=== PATIENT | female | born 1960 | race Asian ===

== ENCOUNTER 2019-04-30 22:20 | Emergency (ER) | payer OTHER, SELFPAY ==
[2019-04-30 22:25] VITALS: BP 177/108; PULSE 132; RESP 32; TEMP 39; O2SAT 97; BMI 25.7
--- NOTE | 2019-04-30 22:44 | DI.RAD.S_ITS ---
PROCEDURE: XR CHEST 1V INDICATIONS: suspected sepsis TECHNIQUE: One view of the chest was acquired. COMPARISON: None. FINDINGS: Surgical changes and devices: None. Lungs and pleura: Lungs are clear. No pleural effusions or pneumothorax. Mediastinum: Mediastinal contours appear normal. Heart size is normal. Bones and chest wall: No suspicious bony lesions. Overlying soft tissues appear unremarkable. IMPRESSION: No acute cardiopulmonary process is evident. Dictated by: Lisandro Kelley M.D. on 05/01/2019 at 9:33 Approved by: Lisandro Kelley M.D. on 05/01/2019 at 9:34
[2019-04-30 23:00] VITALS: BP 145/81; PULSE 95; RESP 19; O2SAT 97
[2019-04-30 23:03] LABS: Add Manual Diff / Slide Review NO; Basophils Absolute Auto 0 /uL (0-100); Basophils Percent Auto 0.5 % (0-2); Eosinophils Absolute Auto 100 /uL (0-450); Eosinophils Percent Auto 1.9 % (2-4); Hematocrit 40.1 % (36-46); Hemoglobin 13.6 g/dL (12.0-16.0); Lymphocytes Absolute Auto 600 /uL (1100-4500); Lymphocytes Percent Auto 8.5 % (25-40); Mean Corpuscular Hemoglobin 32.4 PG (26-34); Mean Corpuscular Volume 95.4 fL (80-100); Monocytes Absolute Auto 500 /uL (0-900); Neutrophils Absolute Auto 5400 /uL (1500-7000); Neutrophils Percent Auto 82.1 % (50-75); Platelet Count 208 X10^3/uL (150-400); Red Blood Cell Count 4.21 X10^6/uL (4.0-5.2); Red Cell Distribution Width 12.4 % (11.6-14.8); White Blood Cell Count 6.5 X10^3/uL (4.5-11.0)
[2019-04-30 23:09] LABS: Prothrombin Time 11.7 SECONDS (10.1-12.7)
[2019-04-30 23:11] LABS: PTT Partial Thromboplastin Tim 28 SECONDS (26.4-36.2)
[2019-04-30 23:14] LABS: Alanine Aminotransferase 22 IU/L (<35); Albumin 4.3 g/dL (3.5-5.0); Albumin Globulin Ratio 1.1 (1.0-2.8); Alkaline Phosphatase 96 U/L (38-126); Aspartate Aminotransferase 29 IU/L (14-36); BUN Creatinine Ratio 17.6 (6-22); Bilirubin Total 0.6 mg/dL (0.2-1.3); Blood Urea Nitrogen 18 mg/dL (7-17); Calcium 9.5 mg/dL (8.4-10.2); Carbon Dioxide 25 mmol/L (22-32); Chloride 104 mmol/L (98-107); Estimated Glomerular Filt Rate 56.1 mL/min (>60); Globulin 3.9 g/dL (1.7-4.1); Glucose 130 mg/dL (70-100); HEMOLYSIS < 15 (0-50); Lactate (Lactic Acid) 0.8 mmol/L (0.7-2.1); Lipase 174 U/L (23-300); Sodium 136 mmol/L (137-145); Total Protein 8.2 g/dL (6.3-8.2)
[2019-04-30] MEDS: SODIUM CHLORIDE 0.9% 1,000 ML 1000 ML IV (23:17)
[2019-04-30 23:36] LABS: Procalcitonin 0.08 ng/mL (<0.5)
[2019-05-01 00:02] LABS: Adenovirus Not Detected (Not Detect); Bordetella pertussis Not Detected (Not Detect); Chlamydophila pneumoniae Not Detected (Not Detect); Coronavirus 229E Not Detected (Not Detect); Coronavirus HKU1 Not Detected (Not Detect); Coronavirus NL 63 Not Detected (Not Detect); Coronavirus OC43 Not Detected (Not Detect); Human Metapneumovirus Detected (Not Detect); Human Rhinovirus/Enterovirus Not Detected (Not Detect); Influenza A Not Detected (Not Detect); Influenza B Not Detected (Not Detect); Mycoplasma pneumoniae Not Detected (Not Detect); Parainfluenza Virus 1 Not Detected (Not Detect); Parainfluenza Virus 2 Not Detected (Not Detect); Parainfluenza Virus 3 Not Detected (Not Detect); Parainfluenza Virus 4 Not Detected (Not Detect); Respiratory Syncytial Virus Not Detected (Not Detect)
--- NOTE | 2019-05-01 00:27 | ED_ITS ---
HPI - Sepsis General Chief Complaint: Shortness of Breath/Dyspnea Mode of arrival: Family Vehicle Source: patient Limitations: no limitations Evaluation Sepsis Screen: Possible Sepsis Risk Sepsis Infection Criteria Present: Suspected New Infection Narrative: HPI: The patient is a 58-year-old female who initially on admission had a blood pressure 177/108 heart rate of 132 respiratory rate 32 and a saturation of 97. Her temperature was a 102.2?. Earlier in the week on Friday she had a fever to 101.3. She has a history of bronchitis with persistent coughing productive of a sputum that is slightly yellow. She has over the past week developed some shortness of breath without chest pain. She denies any palpitations or racing of her heart. She has been mildly dizzy. She has had a runny nose with a congested cough. She has had the fever with sweats but no chills. She has had a mild headache but no numbness tingling paresthesias at a seizures or paresis. She has had sinus congestion with sore throat and a cough. She has had no rash or bruising. She denies any significant abdominal pain denying melena hematochezia diarrhea nausea and vomiting. She has had no urinary symptoms. The patient does not smoke cigarettes or drink alcohol. She denies a history of diabetes mellitus congestive heart failure myocardial infarction and asthma. However she does have a history of hypertension. Review of Systems Review of Systems Narrative: Her review of systems were all negative except for those mentioned in the history of present illness. Patient History Social History Smoking Status: Never smoker Smoking Status: Never smoker Substance Use Type: does not use Exam Narrative Exam Narrative: PHYSICAL EXAM: CONSTITUTIONAL: Awake, Alert, Oriented, Coherent, Cooperative in NAD. Does not appear toxic or ill. She is wearing a mask. HEAD: AT/NC EENT: PERRL, FROM of eyes, no discharge, . No epistaxis but she does have a congested runny nose with clear rhinorrhea. Oral mucosa is moist and pink, posterior pharynx is without erythema or exudate. NECK: Supple, no obvious JVD, Trachea is midline without stridor, no palpable LN or masses. She has full range of motion of her neck without any evidence of nuchal rigidity. SPINE: No gross deformity, no palpable tenderness of the cervical, thoracic, lumbar or sacral spine. No CVA tenderness. THORAX: No deformity, retractions, chest wall tenderness,. LUNGS: The patient has a congested cough with symmetrical breath sounds and inspiratory crackles in both bases of her or her lungs. There was no respirator y distress. HEART: Normal heart tones, regular rhythm but tachycardic.. ABDOMEN: Soft, non-tender, normal bowel sounds without guarding, rebound, rigidity or palpable mass. EXTREMITIES: No edema, cyanosis, deformity or tenderness. SKIN: No rash, bruising, petechiae or purpura. NEURO: Awake, alert, oriented, conversive, cranial nerves II-XII are symmetrical and normal, moves all 4 extremities and is ambulatory Initial Vital Signs Initial Vital Signs: Vital Signs Temperature 102.2 F H 04/30/19 22:25 Pulse Rate 132 H 04/30/19 22:25 Respiratory Rate 32 H 04/30/19 22:25 Blood Pressure 177/108 H 04/30/19 22:25 Pulse Oximetry 97 04/30/19 22:25 Course Course Course Narrative: 0028 the patient's chest x-ray by my review reveals a questionable patchy area of infiltrate in the right lung. However, and the patient's chest is rotated. The patient consequently was started on Levaquin. The respiratory panel was positive for metapneumovirus VR virus otherwise negative. Because of the patient's age arm fever she was checked for freire virus.. The patient complains of a significant headache . 0145 the patient's heart rate went back up to 106. It was down in the mid 90s. Will administer a 2nd L of fluid re-evaluate the patient. I was attempting to try and discharge the patient since her blood pressure has improved to 1 58 respiratory rate has slowed to 18 and her oxygen saturation ranges from between 95-98. 0300 the patient states that she feels much improved her heart rate is 88 she has been resting comfortably would like to go home and try the antibiotics. Orders Ordered: ED Orders 04/30/19 22:35 Respiratory Panel (Film Array) Stat 04/30/19 22:40 EKG-12 Lead Stat 04/30/19 22:44 XR chest 1V Stat RT Consult Eval and Treat Now 04/30/19 22:48 Complete Blood Count AUTO DIFF Stat Comprehensive Metabolic Panel Stat Lactate (Lactic Acid) Stat Lipase Stat Partial Thromboplastin Time Stat Procalcitonin Stat Prothrombin Time INR Stat 04/30/19 23:03 Blood Culture Stat 05/01/19 00:50 Urine Microscopic Stat Discontinued Medications Albuterol (Ventolin Hfa) 2 puff INH NOW ONE Stop: 05/01/19 00:25 Last Admin: 05/01/19 00:37 Dose: 2 puff Documented by: ALESHA Diphenhydramine HCl (Benadryl) 25 mg IV NOW ONE Stop: 05/01/19 00:20 Last Admin: 05/01/19 00:45 Dose: 25 mg Documented by: ALESHA Sodium Chloride (Normal Saline 0.9%) 1,000 mls @ 1,000 mls/hr IV BOLUS ONE Stop: 04/30/19 23:43 Last Infusion: 05/01/19 02:08 Dose: 0 mls/hr Documented by: Infusion: 04/30/19 23:45 Dose: 0 mls/hr Documented by: Admin: 04/30/19 23:17 Dose: 1,000 mls/hr Documented by: ALESHA Levofloxacin (Levaquin) 750 mg in 150 mls @ 100 mls/hr IV NOW ONE Stop: 05/01/19 01:55 Last Infusion: 05/01/19 03:03 Dose: 0 mls/hr Documented by: Admin: 05/01/19 00:45 Dose: 100 mls/hr Documented by: ALESHA Sodium Chloride (Normal Saline 0.9%) 1,000 mls @ 1,000 mls/hr IV BOLUS ONE Stop: 05/01/19 02:43 Last Infusion: 05/01/19 03:30 Dose: 0 mls/hr Documented by: Admin: 05/01/19 02:08 Dose: 1,000 mls/hr Documented by: LASHELL Ketorolac Tromethamine (Toradol) 30 mg IV NOW ONE Stop: 05/01/19 00:20 Last Admin: 05/01/19 00:44 Dose: 30 mg Documented by: ALESHA Methylprednisolone (Solu-Medrol 125 Mg Vial) 125 mg IV NOW ONE Stop: 05/01/19 00:21 Last Admin: 05/01/19 00:44 Dose: 125 mg Documented by: ALESHA Metoclopramide HCl (Reglan) 10 mg IV NOW ONE Stop: 05/01/19 00:20 Last Admin: 05/01/19 00:44 Dose: 10 mg Documented by: ALESHA Vital Signs Vital signs: Vital Signs - 8 hr 04/30/19 22:25 04/30/19 23:00 05/01/19 00:44 Temperature 102.2 F H Pulse Rate 132 H 95 H 100 H Respiratory Rate 32 H 19 20 Blood Pressure 177/108 H Blood Pressure [Left Arm] 145/81 H Pulse Oximetry 97 97 05/01/19 01:30 05/01/19 02:09 05/01/19 02:21 Temperature 99.9 F H 99.9 F H Pulse Rate 105 H 96 H Respiratory Rate 18 25 H Blood Pressure Blood Pressure [Left Arm] 119/58 L 109/55 L Pulse Oximetry 95 95 05/01/19 04:00 Temperature Pulse Rate 85 Respiratory Rate 98 H Blood Pressure 106/59 L Blood Pressure [Left Arm] Pulse Oximetry 98 MDM - Sepsis Medical Records Attestation: I reviewed the patient's medical records. Lab Data Attestation: I reviewed the patient's lab results. Result diagrams: 04/30/19 22:48 04/30/19 22:48 Labs: Lab Results 04/30/19 04/30/19 04/30/19 Range/Units 22:35 22:48 22:48 WBC 6.5 (4.5-11.0) X10^3/uL RBC 4.21 (4.0-5.2) X10^6/uL Hgb 13.6 (12.0-16.0) g/dL Hct 40.1 (36-46) % MCV 95.4 (80-100) fL MCH 32.4 (26-34) PG MCHC 34.0 (30-36) % RDW 12.4 (11.6-14.8) % Plt Count 208 (150-400) X10^3/uL Neut % (Auto) 82.1 H (50-75) % Lymph % (Auto) 8.5 L (25-40) % [place] % (Auto) 7.0 (3-14) % Eos % (Auto) 1.9 L (2-4) % Baso % (Auto) 0.5 (0-2) % Neut # (Auto) 5400 (8505-4031) /uL Lymph # (Auto) 600 L (7675-8204) /uL [place] # (Auto) 500 (0-900) /uL Eos # (Auto) 100 (0-450) /uL Baso # (Auto) 0 (0-100) /uL PT 11.7 (10.1-12.7) SECONDS INR 1.0 (0.9-1.3) APTT 28 (26.4-36.2) SECONDS Sodium (137-145) mmol/L Potassium (3.4-5.1) mmol/L Chloride (98-107) mmol/L Carbon Dioxide (22-32) mmol/L BUN (7-17) mg/dL Creatinine (0.52-1.04) mg/dL Estimated GFR (>60) mL/min BUN/Creatinine Ratio (6-22) Glucose (70-100) mg/dL Lactate (0.7-2.1) mmol/L Calcium (8.4-10.2) mg/dL Total Bilirubin (0.2-1.3) mg/dL AST (14-36) IU/L ALT (<35) IU/L Alkaline Phosphatase (38-126) U/L Total Protein (6.3-8.2) g/dL Albumin (3.5-5.0) g/dL Globulin (1.7-4.1) g/dL Albumin/Globulin Ratio (1.0-2.8) Lipase (23-300) U/L Procalcitonin (<0.5) ng/mL Urine RBC (0-5/HPF) Urine WBC (0-5/HPF) Ur Squamous Epith Cells (0-5/HPF) Urine Bacteria (None) Ur Culture Indicated? Micro UA Comment Chlamy pneumoniae PCR Not detected (Not Detect) Adenovirus (PCR) Not detected (Not Detect) B.parapertussis DNA PCR Not detected (Not Detect) Coronavirus OC43 (PCR) Not detected (Not Detect) Coronavirus HKU1 (PCR) Not detected (Not Detect) Coronavirus 229E (PCR) Not detected (Not Detect) Coronavirus NL63 (PCR) Not detected (Not Detect) Human Metapneumovir PCR Detected H (Not Detect) Influenza Type A (PCR) Not detected (Not Detect) Influenza Type B (PCR) Not detected (Not Detect) M. pneumoniae (PCR) Not detected (Not Detect) Parainfluenza 1 (PCR) Not detected (Not Detect) Parainfluenza 2 (PCR) Not detected (Not Detect) Parainfluenza 3 (PCR) Not detected (Not Detect) Parainfluenza 4 (PCR) Not detected (Not Detect) RSV (PCR) Not detected (Not Detect) Entero/Rhino (PCR) Not detected (Not Detect) 04/30/19 04/30/19 04/30/19 Range/Units 22:48 22:48 22:48 WBC (4.5-11.0) X10^3/uL RBC (4.0-5.2) X10^6/uL Hgb (12.0-16.0) g/dL Hct (36-46) % MCV (80-100) fL MCH (26-34) PG MCHC (30-36) % RDW (11.6-14.8) % Plt Count (150-400) X10^3/uL Neut % (Auto) (50-75) % Lymph % (Auto) (25-40) % [place] % (Auto) (3-14) % Eos % (Auto) (2-4) % Baso % (Auto) (0-2) % Neut # (Auto) (5574-3924) /uL Lymph # (Auto) (9621-5068) /uL [place] # (Auto) (0-900) /uL Eos # (Auto) (0-450) /uL Baso # (Auto) (0-100) /uL PT (10.1-12.7) SECONDS INR (0.9-1.3) APTT (26.4-36.2) SECONDS Sodium 136 L (137-145) mmol/L Potassium 4.0 (3.4-5.1) mmol/L Chloride 104 (98-107) mmol/L Carbon Dioxide 25 (22-32) mmol/L BUN 18 H (7-17) mg/dL Creatinine 1.02 (0.52-1.04) mg/dL Estimated GFR 56.1 L (>60) mL/min BUN/Creatinine Ratio 17.6 (6-22) Glucose 130 H (70-100) mg/dL Lactate 0.8 (0.7-2.1) mmol/L Calcium 9.5 (8.4-10.2) mg/dL Total Bilirubin 0.6 (0.2-1.3) mg/dL AST 29 (14-36) IU/L ALT 22 (<35) IU/L Alkaline Phosphatase 96 (38-126) U/L Total Protein 8.2 (6.3-8.2) g/dL Albumin 4.3 (3.5-5.0) g/dL Globulin 3.9 (1.7-4.1) g/dL Albumin/Globulin Ratio 1.1 (1.0-2.8) Lipase 174 (23-300) U/L Procalcitonin 0.08 (<0.5) ng/mL Urine RBC (0-5/HPF) Urine WBC (0-5/HPF) Ur Squamous Epith Cells (0-5/HPF) Urine Bacteria (None) Ur Culture Indicated? Micro UA Comment Chlamy pneumoniae PCR (Not Detect) Adenovirus (PCR) (Not Detect) B.parapertussis DNA PCR (Not Detect) Coronavirus OC43 (PCR) (Not Detect) Coronavirus HKU1 (PCR) (Not Detect) Coronavirus 229E (PCR) (Not Detect) Coronavirus NL63 (PCR) (Not Detect) Human Metapneumovir PCR (Not Detect) Influenza Type A (PCR) (Not Detect) Influenza Type B (PCR) (Not Detect) M. pneumoniae (PCR) (Not Detect) Parainfluenza 1 (PCR) (Not Detect) Parainfluenza 2 (PCR) (Not Detect) Parainfluenza 3 (PCR) (Not Detect) Parainfluenza 4 (PCR) (Not Detect) RSV (PCR) (Not Detect) Entero/Rhino (PCR) (Not Detect) 05/01/19 Range/Units 00:50 WBC (4.5-11.0) X10^3/uL RBC (4.0-5.2) X10^6/uL Hgb (12.0-16.0) g/dL Hct (36-46) % MCV (80-100) fL MCH (26-34) PG MCHC (30-36) % RDW (11.6-14.8) % Plt Count (150-400) X10^3/uL Neut % (Auto) (50-75) % Lymph % (Auto) (25-40) % [place] % (Auto) (3-14) % Eos % (Auto) (2-4) % Baso % (Auto) (0-2) % Neut # (Auto) (3397-6047) /uL Lymph # (Auto) (4598-1359) /uL [place] # (Auto) (0-900) /uL Eos # (Auto) (0-450) /uL Baso # (Auto) (0-100) /uL PT (10.1-12.7) SECONDS INR (0.9-1.3) APTT (26.4-36.2) SECONDS Sodium (137-145) mmol/L Potassium (3.4-5.1) mmol/L Chloride (98-107) mmol/L Carbon Dioxide (22-32) mmol/L BUN (7-17) mg/dL Creatinine (0.52-1.04) mg/dL Estimated GFR (>60) mL/min BUN/Creatinine Ratio (6-22) Glucose (70-100) mg/dL Lactate (0.7-2.1) mmol/L Calcium (8.4-10.2) mg/dL Total Bilirubin (0.2-1.3) mg/dL AST (14-36) IU/L ALT (<35) IU/L Alkaline Phosphatase (38-126) U/L Total Protein (6.3-8.2) g/dL Albumin (3.5-5.0) g/dL Globulin (1.7-4.1) g/dL Albumin/Globulin Ratio (1.0-2.8) Lipase (23-300) U/L Procalcitonin (<0.5) ng/mL Urine RBC None seen (0-5/HPF) Urine WBC None seen (0-5/HPF) Ur Squamous Epith Cells 0-1 /hpf (0-5/HPF) Urine Bacteria None seen (None) Ur Culture Indicated? Cult not indicated Micro UA Comment Microscopic normal Chlamy pneumoniae PCR (Not Detect) Adenovirus (PCR) (Not Detect) B.parapertussis DNA PCR (Not Detect) Coronavirus OC43 (PCR) (Not Detect) Coronavirus HKU1 (PCR) (Not Detect) Coronavirus 229E (PCR) (Not Detect) Coronavirus NL63 (PCR) (Not Detect) Human Metapneumovir PCR (Not Detect) Influenza Type A (PCR) (Not Detect) Influenza Type B (PCR) (Not Detect) M. pneumoniae (PCR) (Not Detect) Parainfluenza 1 (PCR) (Not Detect) Parainfluenza 2 (PCR) (Not Detect) Parainfluenza 3 (PCR) (Not Detect) Parainfluenza 4 (PCR) (Not Detect) RSV (PCR) (Not Detect) Entero/Rhino (PCR) (Not Detect) Urine Dip Bedside Urine Glucose Negative Bedside Urine Bilirubin - Negative Bedside Urine Ketone +/- 5 Urine Specific [place] 1.020 Bedside Urine Occult Blood +/- Bedside Urine pH 6.5 Bedside Urine Protein - Negative Bedside Urine Urobilinogen - Negative Bedside Urine Nitrite - Negative Bedside Urine Leukocytes + 70 Esterase ECG Data Attestation: I personally reviewed and interpreted this ECG as follows: Interpretation: The patient's EKG obtained on April 29 at 22:4 12:24 a.m. reveals a sinus tachycardia with a ventricular rate of 111. Her intervals are normal including the QTC. She has normal axis. The patient has nonspecific ST segment changes in leads III and V1. The T-waves in V1 or flattened. There are no other acute diagnostic ST segment changes to suggest an acute injury. Discharge Plan Departure Patient Disposition: Home Clinical Impression: Bronchitis, Pneumonitis Fever Qualifiers: Fever type: unspecified Qualified Code(s): R50.9 - Fever, unspecified Headache Qualifiers: Headache type: unspecified Headache chronicity pattern: unspecified pattern Intractability: not intractable Qualified Code(s): R51 - Headache Discharge Date/Time: 05/01/19 04:00 Instructions: DI for Cough -- Adult, DI for Acute Bronchitis, DI for Viral Upper Respiratory Infection -- Adult, DI for Headache Activity Restrictions/Additional Instructions: 1. Freire virus has been ordered on you and it will take approximately 5 days for it to return. During this time you need to isolate herself at home and not go out in public. The hospital will call you with the results of the freire vi chary. 2. Take the Levaquin 500 mg every day. 3. Take the prednisone 40 mg daily for the next 5 days. 4. Use the albuterol inhaler with a spacer 1-2 puffs every 2-4 hours as needed for cough, shortness of breath, wheezing. 5 use acetaminophen/Tylenol 500 mg every 4 hours or 1000 mg every 6 hours for f ever. 6. Drink 2-3 L of fluid per day to keep herself hydrated. 7. If you develop worsening shortness of breath, racing of your heart, dizziness, passing out, or chest pain you need to proceed to the nearest emergency department for further evaluation. 8. Follow-up with your primary care physician. Prescriptions: New prednisone 20 mg tablet 40 mg PO DAILY Qty: 10 RF: 0 levofloxacin [Levaquin] 500 mg tablet 500 mg PO DAILY Qty: 10 RF: 0 albuterol sulfate 90 mcg/actuation HFA aerosol inhaler 2 puff INHALATION Q4-6H PRN (Reason: shortness of breath or wheezing) Qty: 8.5 RF: 2 ED Sign-out Cosign ED Attending Cosignature Attestation: [facility]. This documentation has been reviewed and I agree with assessment and plan. Supervised by James Ceron MD
[2019-05-01] MEDS: ALBUTEROL HFA 60 PUFF/8 GM INH INH (00:37)
[2019-05-01 00:44] VITALS: PULSE 100; RESP 20
[2019-05-01] MEDS: KETOROLAC 60 MG/2 ML VIAL 30 MG IV (00:44)
[2019-05-01] MEDS: METOCLOPRAMIDE 10 MG/2 ML INJ IV (00:44)
[2019-05-01] MEDS: methylPREDNISolone 125 MG/2 ML VIAL IV (00:44)
[2019-05-01] MEDS: levoFLOXacin 750 MG/150 ML PIGGYBACK 100 MG IV (00:45)
[2019-05-01] MEDS: diphenhydrAMINE 50 MG/ML VIAL 25 MG IV (00:45)
[2019-05-01 01:30] VITALS: BP 119/58; PULSE 105; RESP 18; O2SAT 95
[2019-05-01 02:04] LABS: Bacteria Urine None Seen; RBC Urine None Seen (0-5/HPF); WBC Urine None Seen (0-5/HPF)
[2019-05-01 02:05] LABS: Culture Indicated Urine Cult Not Indicated; Squamous Epithelial Cell Urine 0-1 /HPF (0-5/HPF); Urine Comments Microscopic Normal
[2019-05-01] MEDS: SODIUM CHLORIDE 0.9% 1,000 ML 1000 ML IV (02:08)
[2019-05-01 02:09] VITALS: TEMP 37.7
[2019-05-01 02:21] VITALS: BP 109/55; PULSE 96; RESP 25; TEMP 37.7; O2SAT 95
[2019-05-01 04:00] VITALS: BP 106/59; PULSE 85; RESP 98; O2SAT 98
[2019-05-04 08:39] LABS: COVID19 Sendout Not Detected (Not Detected)
== END 2019-05-01 04:00 | disposition home or self-care (01) ==
PROVIDERS: Emergency Provider Emergency Medicine
DX: J40 Bronchitis, not specified as acute or chronic (principal); J18.9 Pneumonia, unspecified organism; R50.9 Fever, unspecified; R51 Headache; R00.0 Tachycardia, unspecified
CPT/HCPCS: 36415; 71045; 80053; 81003; 81015; 83605; 83690; 84145; 85025; 85610; 85730; 87040; 87633; 87635; 93005; 94640; 96365; 96366; 96375; 99284; J1200; J1885; J1956; J2765; J2930

== ENCOUNTER 2020-10-12 18:00 | Emergency (ER) | payer OTHER, SELFPAY ==
[2020-10-12 18:25] VITALS: BP 166/96; PULSE 86; RESP 14; TEMP 36.2; O2SAT 98; BMI 28.3
--- NOTE | 2020-10-12 18:32 | DI.RAD.S_ITS ---
PROCEDURE: XR HAND LT MIN 3V INDICATIONS: cut left middle/index finger on an electric saw. TECHNIQUE: 3 views of the hand(s) acquired. COMPARISON: None. FINDINGS: Bones: No fractures or dislocations. Carpal bones are normally aligned. No suspicious bony lesions. Generalized decrease in osseous mineralization noted. Soft tissues: Soft tissue laceration noted involving distal 2nd and 3rd digits. No radiopaque foreign body or underlying osseous injury. IMPRESSION: Soft tissue laceration without foreign body or osseous injury Approved by: Pancho Macario M.D. on 10/12/2020 at 18:12
[2020-10-12] MEDS: TET,DIPH,PERTUSS(ACELL),VAC/PF 0.5 ML SYRINGE IM (19:35)
--- NOTE | 2020-10-12 20:14 | ED_ITS ---
HPI - Wound/Laceration <Shazia Alberts PA-C - Last Filed: 10/12/20 21:35> General Chief Complaint: Wound/Laceration Stated Complaint: Laceration to Pointer and Middle Finger Left Hand Time Seen by Provider: 10/12/20 18:40 Source: patient Mode of arrival: Ambulatory Limitations: no limitations History of Present Illness HPI narrative: 59-year-old [id number] female who presents to the ER after her sustaining accidental laceration from electric saw to her left 1st and 2nd fingers. Denies any numbness, tingling, weakness, range of motion, or prolonged hemorrhage. Unsure last tetanus vaccine. Related Data Previous Rx's Medication Instructions Recorded albuterol sulfate 90 mcg/actuation 2 puff INHALATION Q4-6H PRN #8.5 05/01/19 aerosol inhaler gram levofloxacin 500 mg tablet 500 mg PO DAILY #10 tab 05/01/19 (Levaquin) prednisone 20 mg tablet 40 mg PO DAILY #10 tab 05/01/19 Allergies Allergy/AdvReac Type Severity Reaction Status Date / Time No Known Drug Allergies Allergy Verified 10/26/20 11:58 Review of Systems <Shazia Alberts PA-C - Last Filed: 10/12/20 21:35> Review of Systems Narrative: General: denies fever, chills MSK: denies joint pain, muscle weakness Skin: (+) laceration. Denies rash Neuro: denies LOC, numbness, weakness, loss of sensory/motor function Patient History <Shazia Alberts PA-C - Last Filed: 10/12/20 21:35> Social History Smoking Status: Never smoker Smoking Status: Never smoker alcohol intake frequency: holidays/special occasions only Substance Use Type: does not use Exam <Shazia Alberts PA-C - Last Filed: 10/12/20 21:35> Narrative Exam Narrative: Independently reviewed vitals signs and nursing notes. General: Awake, alert, nontoxic, no cardiorespiratory distress Head/Neck: Atraumatic, neck full range of motion Eyes: EOMI, conjunctiva normal Nose: nares patent, no rhinorrhea Cardio: Regular rate and rhythm, no peripheral edema Respiratory: respirations unlabored without wheezing, stridor, or rales. No retractions. MSK: Moves all extremities, neurovascularly intact, 5/5 strength to resisted left index and middle extension and flexion. Skin: Lacerations to the palmar left index (overlying P1) and middle finger (P3) approximately 1cm each. Normal sensation and capillary refill. Neuro: Normal speech and cognition, normal gait Initial Vital Signs Initial Vital Signs: Vital Signs Temperature 97.1 F L 10/12/20 18:25 Pulse Rate 86 10/12/20 18:25 Respiratory Rate 14 10/12/20 18:25 Blood Pressure 166/96 H 10/12/20 18:25 Pulse Oximetry 98 10/12/20 18:25 <Michael Cool DO - Last Filed: 10/27/20 05:10> Initial Vital Signs Initial Vital Signs: Vital Signs Temperature 97.1 F L 10/12/20 18:25 Pulse Rate 86 10/12/20 18:25 Respiratory Rate 14 10/12/20 18:25 Blood Pressure 166/96 H 10/12/20 18:25 Pulse Oximetry 98 10/12/20 18:25 Procedures <MARA Quevedo Last Filed: 10/12/20 21:35> Laceration Repair Laceration 1: Time of procedure: 21:00 Site: hand Side (If applicable): left Size (cm): 2 Description: irregular Depth: simple, single layer Local Anesthetic: lidocaine 1% (2mL) Amount of anesthesia used (mL): 2 Pre-repair: wound explored, irrigated extensively and deep structures intact Skin layer closed with: nylon Size (cm): 5-0 Number of sutures: 8 Technique: simple, interrupted Course <Shazia Alberts PA-C - Last Filed: 10/12/20 21:35> Orders Ordered: Discontinued Medications Bacitracin (Bacitracin Oint 0.9 Gm Pckt) 1 applic TOP NOW ONE Stop: 10/12/20 21:11 Last Admin: 10/12/20 21:16 Dose: 1 applic Documented by: RADHA Diphtheria/Tetanus/Acell Pertussis (Tet,Diph,Pertuss(Acell),Vac/Pf 0.5 Ml Syringe) 0.5 ml IM .ONCE ONE Stop: 10/12/20 19:33 Last Admin: 10/12/20 19:35 Dose: 0.5 ml Documented by: RADHA Lidocaine HCl (Lidocaine 1% 20 Ml) 10 ml INJ NOW ONE Stop: 10/12/20 20:07 Lidocaine HCl (Lidocaine 2% Inj Mdv) 10 ml SUBCUT NOW ONE Stop: 10/12/20 20:27 Last Admin: 10/12/20 21:16 Dose: 10 ml Documented by: RADHA Vital Signs Vital signs: Vital Signs - 8 hr 10/12/20 18:25 Temperature 97.1 F L Pulse Rate 86 Respiratory Rate 14 Blood Pressure 166/96 H Pulse Oximetry 98 <Michael Cool DO - Last Filed: 10/27/20 05:10> Orders Ordered: Discontinued Medications Bacitracin (Bacitracin Oint 0.9 Gm Pckt) 1 applic TOP NOW ONE Stop: 10/12/20 21:11 Last Admin: 10/12/20 21:16 Dose: 1 applic Documented by: RADHA Diphtheria/Tetanus/Acell Pertussis (Tet,Diph,Pertuss(Acell),Vac/Pf 0.5 Ml Syringe) 0.5 ml IM .ONCE ONE Stop: 10/12/20 19:33 Last Admin: 10/12/20 19:35 Dose: 0.5 ml Documented by: RADHA Lidocaine HCl (Lidocaine 1% 20 Ml) 10 ml INJ NOW ONE Stop: 10/12/20 20:07 Lidocaine HCl (Lidocaine 2% Inj Mdv) 10 ml SUBCUT NOW ONE Stop: 10/12/20 20:27 Last Admin: 10/12/20 21:16 Dose: 10 ml Documented by: RADHA Vital Signs Vital signs: Vital Signs - 8 hr 10/12/20 18:25 Temperature 97.1 F L Pulse Rate 86 Respiratory Rate 14 Blood Pressure 166/96 H Pulse Oximetry 98 MDM - Wound/Laceration <Shazia Alberts PA-C - Last Filed: 10/12/20 21:35> Imaging Data Extremity x-ray #1: Radiologist's Impression: PROCEDURE:? XR HAND LT MIN 3V ? INDICATIONS:? cut left middle/index finger on an electric saw. ? TECHNIQUE:? 3 views of the hand(s) acquired.? ? COMPARISON:? None. ? FINDINGS:? ? Bones:? No fractures or dislocations.? Carpal bones are normally aligned.? No suspicious bony lesions.? Generalized decrease in osseous mineralization noted. ? Soft tissues:? Soft tissue laceration noted involving distal 2nd and 3rd digits.? No radiopaque foreign body or underlying osseous injury. ? ? IMPRESSION:? Soft tissue laceration without foreign body or osseous injury ? ? ? Approved by: Pancho Macario M.D. on 10/12/2020 at 18:12? MDM Narrative Medical decision making narrative: 59-year-old [id number] female with left index and middle finger lacerations without open fracture/joint, or damage to the tendons, nerves, or blood vessels. Tetanus updated today. X-ray unremarkable. 8 nonabsorbable 5-0 sutures (4 to index laceration, 4 to the laceration). Instructed to follow-up in 10-14 days for suture removal. Please keep wound clean, dry, wash with soap and water at least twice a day. Patient started on prophylactic Keflex for deep hand laceration. Follow-up with your PCP as directed within 1 week or sooner if new/worsening symptoms arise. Discharge Plan Departure Patient Disposition: Home Clinical Impression: Laceration of finger of left hand Instructions: DI for Laceration Repair Activity Restrictions/Additional Instructions: *You have been diagnosed with [left index and middle finger lacerations without tendon, blood vessel, damage or fracture] *What to do: [X] New medication prescriptions sent to your pharmacy: [[facility]] [ ] New medication written as a paper prescription [ ] No new medications given You have 8 (EIGHT) NONABSORBABLE sutures that will need to be removed in the next 10-14 days. Please return to any ER, urgent care, walking clinic for removal. You been started on prophylactic antibiotics. Please start and complete all these medications. Your tetanus vaccine was updated today. * Please follow-up with your primary care provider in 2-3 days, call for an appointment. Let them know you were seen in the emergency department and that we ask you to be seen in follow-up. * if you do not have a primary care provider, please contact the [facility] Resource line at [phone]. They will ask some questions about your medical history and help to get up with a doctor in the community. * Return to the ER if you should have any new, worsening, or concerning symptoms, such as [wound redness, warmth, pain, or drainage] Prescriptions: No Action prednisone 20 mg tablet 40 mg PO DAILY Qty: 10 RF: 0 levofloxacin [Levaquin] 500 mg tablet 500 mg PO DAILY Qty: 10 RF: 0 albuterol sulfate 90 mcg/actuation HFA aerosol inhaler 2 puff INHALATION Q4-6H PRN (Reason: shortness of breath or wheezing) Qty: 8.5 RF: 2 <Michael Cool DO - Last Filed: 10/27/20 05:10> Cosign ED Attending Cosignature Attestation: I was immediately available in the department for consultation. This documentation has been reviewed and I agree with assessment and plan. Supervised by Michael Cool DO
[2020-10-12] MEDS: LIDOCAINE 2% INJ MDV 10 ML SUBCUT (21:16)
[2020-10-12] MEDS: BACITRACIN OINT 0.9 GM PCKT 1 APPLIC TOP (21:16)
--- NOTE | 2020-10-12 21:26 | PC.NURSE ---
Wound dressed with non adherent gauze and tube gauze.
== END 2020-10-12 21:26 | disposition home or self-care (01) ==
PROVIDERS: Emergency Provider Physician Assistant
DX: S61.219A Laceration without foreign body of unspecified finger without damage to nail, initial encounter (principal); W27.0XXA Contact with workbench tool, initial encounter; Z23 Encounter for immunization
CPT/HCPCS: 12001; 73130; 90471; 99283; 90715

== ENCOUNTER 2020-10-26 11:51 | Emergency (ER) | payer OTHER, SELFPAY ==
[2020-10-26 11:58] VITALS: BP 134/78; PULSE 70; RESP 14; TEMP 36.1; O2SAT 98
--- NOTE | 2020-10-26 12:11 | ED.RECABL ---
HPI - Recheck/Abnormal Lab/Rx <Presley Hernandez PA-C - Last Filed: 10/26/20 12:13> General Chief Complaint: Recheck/Abnormal Lab/Rx Stated Complaint: Needs Stitches Removed Time Seen by Provider: 10/26/20 12:00 Source: patient Mode of arrival: Ambulatory Limitations: no limitations History of Present Illness HPI narrative: Crystal presents today with chief complaint of requesting her sutures be removed. She lacerated the fingers of her left hand and had suture placement 1 week ago. She denies any significant pain, decreased range of motion, redness, fever or any other concerns or complaints. Related Data Previous Rx's Medication Instructions Recorded albuterol sulfate 90 mcg/actuation 2 puff INHALATION Q4-6H PRN #8.5 05/01/19 aerosol inhaler gram levofloxacin 500 mg tablet 500 mg PO DAILY #10 tab 05/01/19 (Levaquin) prednisone 20 mg tablet 40 mg PO DAILY #10 tab 05/01/19 Allergies Allergy/AdvReac Type Severity Reaction Status Date / Time No Known Drug Allergies Allergy Verified 10/26/20 11:58 Review of Systems <Presley Hernandez PA-C - Last Filed: 10/26/20 12:13> Review of Systems Narrative: As per HPI Patient History <Presley Hernandez PA-C - Last Filed: 10/26/20 12:13> Social History Smoking Status: Never smoker Smoking Status: Never smoker alcohol intake frequency: holidays/special occasions only Substance Use Type: does not use Exam <Presley Hernandez PA-C - Last Filed: 10/26/20 12:13> Narrative Exam Narrative: Exam Narrative: Const General: cooperative, healthy appearing, comfortable, no acute distress, well developed and well groomed Nutritional Appearance: average body habitus Orientation: alert and oriented x3 HENMT Head: normal to inspection and atraumatic Ears: hearing grossly normal bilaterally Nose: external nose normal and nares normal Face and sinus: normal facial exam Neck Neck: normal visual inspection and supple Resp Effort & Inspection: normal respiratory effort, able to speak in complete sentences, no audible wheezes, not labored, no nasal flaring and no respiratory distress Neuro General: alert, oriented x3, gait normal, tone normal and moves all extremities Cognition: normal cognition Speech: speech normal Gait: normal gait Extremities Left hand examined. Four sutures noted in the left index finger on the palmar side as well as for sutures on the left middle finger. No significant surrounding redness. Distal sensation is intact. Capillary refill is normal. Psych Appearance: grossly normal and well kempt Mental Status: mental status grossly normal Speech and Movement: speech and movement normal Mood: congruent mood Affect: normal affect Initial Vital Signs Initial Vital Signs: Vital Signs Temperature 97.0 F L 10/26/20 11:58 Pulse Rate 70 10/26/20 11:58 Respiratory Rate 14 10/26/20 11:58 Blood Pressure 134/78 10/26/20 11:58 Pulse Oximetry 98 10/26/20 11:58 <Kim Mayfield DO - Last Filed: 10/29/20 15:31> Initial Vital Signs Initial Vital Signs: Vital Signs Temperature 97.0 F L 10/26/20 11:58 Pulse Rate 70 10/26/20 11:58 Respiratory Rate 14 10/26/20 11:58 Blood Pressure 134/78 10/26/20 11:58 Pulse Oximetry 98 10/26/20 11:58 Course <Presley Hernandez PA-C - Last Filed: 10/26/20 12:13> Vital Signs Vital signs: Vital Signs - 8 hr 10/26/20 11:58 Temperature 97.0 F L Pulse Rate 70 Respiratory Rate 14 Blood Pressure 134/78 Pulse Oximetry 98 <Kim Mayfield DO - Last Filed: 10/29/20 15:31> Vital Signs Vital signs: Vital Signs - 8 hr 10/26/20 11:58 Temperature 97.0 F L Pulse Rate 70 Respiratory Rate 14 Blood Pressure 134/78 Pulse Oximetry 98 [facility] - Recheck/Abnormal Lab/Rx <Presley Hernandez PA-C - Last Filed: 10/26/20 12:13> [facility] Narrative Medical decision making narrative: No signs of infection at this time. Neurovascularly intact. Full range of motion. Discharge Plan Departure Patient Disposition: Home Clinical Impression: Encounter for removal of sutures Activity Restrictions/Additional Instructions: Thank you for coming in today. Please monitor for signs of infection which include increased redness, swelling pain, fever. Follow-up with your PCP if you experience any of these or return here. Thank you Presley Hernandez PA-C Prescriptions: No Action prednisone 20 mg tablet 40 mg PO DAILY Qty: 10 RF: 0 levofloxacin [Levaquin] 500 mg tablet 500 mg PO DAILY Qty: 10 RF: 0 albuterol sulfate 90 mcg/actuation HFA aerosol inhaler 2 puff INHALATION Q4-6H PRN (Reason: shortness of breath or wheezing) Qty: 8.5 RF: 2 <Kim Mayfield DO - Last Filed: 10/29/20 15:31> Cosign ED Attending Danielature Attestation: I was immediately available in the department for consultation. Documentation has been reviewed.
== END 2020-10-26 12:14 | disposition home or self-care (01) ==
PROVIDERS: Emergency Provider Physician Assistant
DX: Z48.02 Encounter for removal of sutures (principal)
CPT/HCPCS: 99281